=== PATIENT | female | born 1965 | race Two or more races ===

== ENCOUNTER 2024-07-04 08:48 | Inpatient (IN) | payer MEDICAID, OTHER ==
[~2024-07-04] VITALS: Ht 160 cm; Wt 67.9 kg
--- NOTE | 2024-07-04 10:28 | ED.PDOC ---
GI ASSESSMENT HPI Comments HPI: Poor Historian. 59-year-old female presents to emergency department for two day history of bilateral lower quadrant pain that changes in intensity associated with diarrhea brown in color but now yellow. Denies any vomiting but has some nausea with any time she eats. Patient had seven episodes of diarrhea yesterday and two today. No other alleviating or precipitating factors. Denies any other sick contacts with GI symptoms. Past Medical History: Diabetes, hyperlipidemia Past Surgical History: Gastric sleeve, total hysterectomy. REVIEW OF SYSTEMS: CONSTITUTIONAL: Denies acute: fever, diaphoresis, chills, generalized weakness. HEAD: Denies acute: headache, photophobia Eyes: Denies acute: Double vision, vision loss, eye pain, eye discharge. EARS: Denies acute: tinnitus, hearing loss, ear discharge, ear pain, THROAT: Denies acute: sore throat, swelling, difficulty swallowing , pain with swallowing, change in voice. NECK: Denies acute: neck pain, neck swelling, stiff neck. HEART: Denies acute : chest pain, palpitations, LUNGS: Denies acute: SOB, wheezing, cough, hemoptysis ABDOMEN: Denies acute: , Vomiting, melena , hematemesis, hematochezia SKIN: Denies acute: rash, redness, lesions, itchiness. EXTREMITIES: Denies acute: calf pain, numbness, tingling, weakness, denies pain in extremity. Denies acute: Low back pain. Neuro: Denies acute: focal neurological deficit, motor or sensory focal neurological deficit, tremors, seizure like activity, confusion, dizziness, change in mental status, loss of bowel or bladder function, cauda equina like symptoms. : Denies acute: dysuria, hematuria, flank pain, increase in urinary frequency. PSYCH: Denies acute: hallucination, suicidal ideation, homicidal ideation. FEMALE: Denies acute: abnormal vaginal bleeding, foul odor, unusual discharge. PHYSICAL EXAM: General: ----no----acute distress, awake and alert. Head: normocephalic, atraumatic. Neck: supple, trachea is midline, no swelling. Throat: Normal phonation. Eyes:, no erythema, no purulent discharge, no proptosis, no icterus. Heart: regular rate, regular rhythm, no significant murmur appreciated. Lungs: no apparent respiratory distress, Able to speak in full sentences. No wheezing, no rhonchi, no crackles. No stridors Clear to auscultation bilaterally. Abdomen: Minimal bilateral lower quadrant tender to palpation, non distended, soft, no guarding, no rebound, + bowel sounds. Neuro: Awake, Alert, oriented to name, self, situation, follows commands GCS=15. Speech is normal. Skin: no petechia, no purpura, no cyanosis, non-pale, not jaundice. Lower extremities: --no - Pitting edema no deformity, no focal swelling, no calf TTP. Makes eye contact. moves all four extremities. Face: no apparent facial droop. Ambulating in the ED independently. ED COURSE: Chief Complaint: Abdominal Pain Time Seen by MD: 10:18 Reviewed Notes: Nurses Notes, Medications, Allergies Allergies: Coded Allergies: NO KNOWN ALLERGIES (Unverified , 07/04/24) Home Meds Reported Medications Metformin Hydrochloride (Metformin Hcl Er) 500 Mg Tab, 1 TAB PO DAILY 07/04/24 Tdtga-2-Jhya Ethyl Esters (Dwxod-2-Jjcy Ethyl Esters) 1 Gm Cap, 2 CAP PO BID 07/04/24 Cholecalciferol (Vitamin D-3 Super Strengt) 2,000 Unit Tab, 1 TAB PO DAILY 07/04/24 Ferrous Sulfate (Ferosul) 325 Mg Tab, PO 07/04/24 Rosuvastatin Calcium (Rosuvastatin Calcium) 20 Mg Tab, 1 TAB PO 07/04/24 Information Source: Patient Mode of Arrival: Ambulatory Was a procedure done? Was a procedure done?: No GI differential Dx Differential Diagnosis: Other (DDX include Diverticulitis, colitis, gastroenteritis, acute abdomen, SBO, enteritis, constipation, volvulus, appendicitis, Gallbladder disease, choledocolithiasis, ascending cholangitis, pancreatitis, intraAbdominal mass/neoplasm, hepatitis, UTI, pylonephritis, kidney stone, aneurysm, dissection, Inflammatory bowel disease, gastroparesis, ischemic bowel, ovarian torsion, ) X-Ray, Labs, Meds, VS Vital Signs Date Time Temp Pulse Resp B/P (MAP) Pulse Ox O2 Delivery O2 Flow Rate FiO2 4/24/25 09:20 98.8 67 17 110/65 (80) 99 98.8 Lab Test 07/04/24 10:31 07/04/24 08:58 Range/Units White Blood Count 7.2 4.4-10.8 10^3/uL Red Blood Count 4.83 4.0-5.20 10^6/uL Hemoglobin 14.7 12.2-16.2 g/dL Hematocrit 42.6 36.0-46.0 % Mean Corpuscular Volume 88.3 80.0-100.0 fL Mean Corpuscular Hemoglobin 30.6 28.0-32.0 pg Mean Corpuscular Hemoglobin Concent 34.6 32.0-36.0 g/dL Red Cell Distribution Width 13.3 11.8-14.3 % Platelet Count 248 140-450 10^3/uL Mean Platelet Volume 6.6 L 6.9-10.8 fL Neutrophils (%) (Auto) 64.7 37.0-80.0 % Lymphocytes (%) (Auto) 27.1 10.0-50.0 % Monocytes (%) (Auto) 6.9 0.0-12.0 % Eosinophils (%) (Auto) 0.7 0.0-7.0 % Basophils (%) (Auto) 0.6 0.0-2.0 % Neutrophils # (Auto) 4.6 1.6-8.6 10 ^3/uL Lymphocytes # (Auto) 1.9 0.4-5.4 10 ^3/uL Monocytes # (Auto) 0.5 0-1.3 10 ^3/uL Eosinophils # (Auto) 0.1 0-0.8 10 ^3/uL Basophils # (Auto) 0 0-0.2 10 ^3/uL Nucleated Red Blood Cells 0.1 % Sodium Level 141 136-145 mmol/L Potassium Level 4.1 3.5-5.1 mmol/L Chloride Level 106 98-107 mmol/L Carbon Dioxide Level 26 20-31 mmol/L Anion Gap 9 5-15 Blood Urea Nitrogen 9 9-23 mg/dL Creatinine 0.58 0.550-1.02 mg/dL Glomerular Filtration Rate Calc 105 >90 mL/min BUN/Creatinine Ratio 15.5 10.0-20.0 Serum Glucose 106 74-106 mg/dL Hemoglobin A1c 5.2 <5.7 % A1C Lactic Acid Level 1.0 0.4-2.0 mmol/L Calcium Level 10.1 8.7-10.4 mg/dL Total Bilirubin 0.5 0.2-1.0 mg/dL Aspartate Amino Transferase (AST) 15 13-40 U/L Alanine Aminotransferase (ALT) 17 7-40 U/L Alkaline Phosphatase 85 46-116 U/L Lactate Dehydrogenase 174 120-246 U/L Troponin I High Sensitivity < 3 L </=34 ng/L Total Protein 7.5 5.7-8.2 g/dL Albumin 4.5 3.2-4.8 g/dL Carcinoembryonic Antigen 1.18 <=5.0 ng/mL CA 125 Antigen Pending Urine Color Yellow Yellow Urine Clarity Turbid H Clear Urine pH 5.5 5.0-9.0 Urine Specific [place] 1.022 1.001-1.035 Urine Protein Trace H Negative Urine Ketones Negative Negative Urine Blood Trace H Negative /uL Urine Nitrite Negative Negative Urine Bilirubin Negative Negative Urine Urobilinogen Normal Negative mg/dL Urine Leukocyte Esterase 1+ Negative /uL Urine RBC 4 0 - 4 /hpf Urine Microscopic WBC 7 H 0-5 /HPF Urine Squamous Epithelial Cells Few <5 /hpf Urine Calcium Oxalate Crystals Many None Seen Urine Bacteria Few H None Seen /hpf Urine Mucus Moderate None Seen Urine Glucose Normal Normal mg/dL Current Medications Medications (Trade) Dose Ordered Sig/Nicolle Route Start Time Stop Time Status Last Admin Ciprofloxacin 200 ml @ 200 mls/hr ONCE ONCE IV 07/04/24 12:45 07/04/24 13:44 DC 07/04/24 13:49 Metronidazole 100 ml @ 100 mls/hr ONCE ONCE IV 07/04/24 12:45 07/04/24 13:44 DC 07/04/24 13:01 PROCEDURE(s): ABPL - CT AB PEL WO CON-NO ORAL OR IV REASON: abd pain ORDER NUMBER(s): [id number], ACCESSION NUMBER(s): [id number] Exam: CT CT AB PEL WO CON-NO ORAL OR IV History: abd pain Comparison Study: None available at time of dictation. Technique: Multidetector spiral CT of the abdomen and pelvis was performed from lung bases to pubic symphysis. Imaging was performed without intravenous contrast. Coronal and sagittal multiplanar reformats were obtained from the axial data set by the technologist. Radiation Dose : 1. Abdomen/Pelvis: CTDIvol 11.5 mGy, DLP 589.2 mGy*cm. Findings: Evaluation of vasculature and solid organs is limited due to lack of intravenous contrast use. Lung Bases: Lung bases are clear. Visualized portions of the heart and pericardium are unremarkable. Liver: The liver is normal in size. No focal lesions. Gallbladder and Biliary Tree: The gallbladder is unremarkable. No intrahepatic or extrahepatic biliary ductal dilatation. Spleen: Unremarkable Pancreas: The pancreas is grossly unremarkable. Adrenal Glands: Unremarkable Kidneys: Kidneys are unremarkable without calculi or hydronephrosis. GI tract: Postsurgical changes in the stomach. No evidence of small bowel wall thickening or abnormal dilatation to suggest bowel obstruction. Scattered colonic diverticulosis without acute diverticulitis. Underdistention versus wall thickening of the ascending and descending colon. The appendix is normal. Peritoneum/mesentery/retroperitoneum. No evidence of free intraperitoneal air. No ascites. Lymph nodes: Increased number of lymph nodes for example in the right lower quadrant measuring up to 1.0 cm in short axis and in the central mesentery. Abdominal Wall: Unremarkable. Vasculature: The visualized abdominal aorta is normal in size and caliber. Evaluation of abdominal and pelvic vessels is limited due to lack of intravenous contrast. Urinary Bladder: Grossly unremarkable for degree of distention. Pelvic Organs: Unremarkable Musculoskeletal: No aggressive focal bony lesions, acute fractures or dislocation. IMPRESSION: 1. Underdistention versus wall thickening of the ascending and descending colon. Colitis is not excluded. 2. Increased number lymph nodes for example in the right lower quadrant and central abdomen. The etiology is unclear. Metastatic adenopathy of unknown source can not be excluded. Correlation with history is suggested. If clinically warranted, CT of the abdomen pelvis with intravenous and oral contrast may be obtained for further evaluation. Time of 1ST Reevaluation: 00:00 Reevaluation 1ST: Unchanged Patient Education/Counseling: Diagnosis, Treatment Family Education/Counseling: Other Comments Patient presented with the above HPI.---GI symptoms and abdominal pain---workup was initiated. patient was found with the above mentioned diagnosis. the following medications were ordered: please refer to order lists of meds and tests obtained by myself Dr. Beaulieu. Patient ED course and VS have been stabilized. Patient has been reassessed in the ED and remained in a stable condition. Pertinent incidental findings were discussed with the patient and/or family. Patient/family voices understanding and is agreeable with plan. Patient has been observed in the ED adequate length of time to insure improvement/stability. Escalation of care considered: Consideration of escalation to observation or admission Patient was treated for both colitis and UTI Patient was ADMITTED to the medicine team for further evaluation and treatment of their presentation. All the reports of any imaging studies that were ordered by myself were reviewed by myself. Departure 1 Departure Time of Disposition: 12:37 Impression: Primary Impression: Non-specific colitis Additional Impressions: UTI (urinary tract infection) Abnormal finding on CT scan Disposition: ADMITTED INPATIENT Admit to: [facility] Condition: Guarded Discharged With: Self Critical Care Note Critical Care Time?: No Heart Score Heart Score: Heart Score Response (Comments) Value History N/A 0 EKG N/A 0 Age N/A 0 Risk Factors N/A 0 Troponin N/A 0 Total 0 I personally scribed for HARPREET BEAULIEU DO ([email or web address]) on 07/04/24 at 15:16. Electronically submitted by Garrett Duran ([email or web address]). HARPREET BEAULIEU DO Jul 04, 2024 10:28
[2024-07-04 10:39] LABS: Urine Bacteria FEW /hpf (None Seen); Urine Blood TRACE /uL (Negative); Urine Clarity Turbid (Clear); Urine Color Yellow (Yellow); Urine Mucus MODERATE (None Seen); Urine Protein, UAD TRACE (Negative); Urine Specific Gravity 1.022 (1.001-1.035); Urine Squamous Epithelial Cell FEW /hpf (<5); Urine Urobilinogen Normal (Negative); Urine WBC 7 /HPF (0-5); Urine pH 5.5 (5.0-9.0)
[2024-07-04 10:57] LABS: Basophils # (auto) 0 10 ^3/uL (0-0.2); Basophils % (auto) 0.6 % (0.0-2.0); Eosinophils # (auto) 0.1 10 ^3/uL (0-0.8); Eosinophils % (auto) 0.7 % (0.0-7.0); Hematocrit 42.6 % (36.0-46.0); Hemoglobin 14.7 g/dL (12.2-16.2); Lymphocytes # (auto) 1.9 10 ^3/uL (0.4-5.4); Lymphocytes % (auto) 27.1 % (10.0-50.0); Mean Corpuscular Hemoglobin 30.6 pg (28.0-32.0); Mean Corpuscular Hgb Conc. 34.6 g/dL (32.0-36.0); Mean Corpuscular Volume 88.3 fL (80.0-100.0); Monocytes # (auto) 0.5 10 ^3/uL (0-1.3); Monocytes % (auto) 6.9 % (0.0-12.0); Neutrophils # (auto) 4.6 10 ^3/uL (1.6-8.6); Neutrophils % (auto) 64.7 % (37.0-80.0); Nucleated Red Blood Cells % 0.1 %; Platelet Count (auto) 248 10^3/uL (140-450); Red Blood Cells 4.83 10^6/uL (4.0-5.20); Red Cell Distribution Width 13.3 % (11.8-14.3); White Blood Cell 7.2 10^3/uL (4.4-10.8)
[2024-07-04 11:15] LABS: Alanine Aminotransferase 17 U/L (7-40); Albumin 4.5 g/dL (3.2-4.8); Alkaline Phosphatase 85 U/L (46-116); Anion Gap 9 (5-15); Aspartate Aminotransferase 15 U/L (13-40); BUN/Creatinine Ratio 15.5 (10.0-20.0); Bilirubin, Total 0.5 mg/dL (0.2-1.0); Calcium 10.1 mg/dL (8.7-10.4); Carbon Dioxide 26 mmol/L (20-31); Chloride 106 mmol/L (98-107); Glucose 106 mg/dL (74-106); Potassium 4.1 mmol/L (3.5-5.1); Sodium 141 mmol/L (136-145); Total Protein 7.5 g/dL (5.7-8.2)
[2024-07-04 11:16] LABS: Blood Urea Nitrogen 9 mg/dL (9-23)
--- NOTE | 2024-07-04 11:40 | DVH ---
Exam: CT CT AB PEL WO CON-NO ORAL OR IV History: abd pain Comparison Study: None available at time of dictation. Technique: Multidetector spiral CT of the abdomen and pelvis was performed from lung bases to pubic s ymphysis. Imaging was performed without intravenous contrast. Coronal and sagittal multiplanar reform ats were obtained from the axial data set by the technologist. Radiation Dose : 1. Abdomen/Pelvis: CTDIvol 11.5 mGy, DLP 589.2 mGy*cm. Findings: Evaluation of vasculature and solid organs is limited due to lack of intravenous contrast use. Lung Bases: Lung bases are clear. Visualized portions of the heart and pericardium are unremarkable. Liver: The liver is normal in size. No focal lesions. Gallbladder and Biliary Tree: The gallbladder is unremarkable. No intrahepatic or extrahepatic bilia ry ductal dilatation. Spleen: Unremarkable Pancreas: The pancreas is grossly unremarkable. Adrenal Glands: Unremarkable Kidneys: Kidneys are unremarkable without calculi or hydronephrosis. GI tract: Postsurgical changes in the stomach. No evidence of small bowel wall thickening or abnormal dilatation to suggest bowel obstruction. Scattered colonic diverticulosis without acute diverticulit is. Underdistention versus wall thickening of the ascending and descending colon. The appendix is nor mal. Peritoneum/mesentery/retroperitoneum. No evidence of free intraperitoneal air. No ascites. Lymph nodes: Increased number of lymph nodes for example in the right lower quadrant measuring up to 1.0 cm in short axis and in the central mesentery. Abdominal Wall: Unremarkable. Vasculature: The visualized abdominal aorta is normal in size and caliber. Evaluation of abdominal a nd pelvic vessels is limited due to lack of intravenous contrast. Urinary Bladder: Grossly unremarkable for degree of distention. Pelvic Organs: Unremarkable Musculoskeletal: No aggressive focal bony lesions, acute fractures or dislocation. IMPRESSION: 1. Underdistention versus wall thickening of the ascending and descending colon. Colitis is not exclu ded. 2. Increased number lymph nodes for example in the right lower quadrant and central abdomen. The simone ology is unclear. Metastatic adenopathy of unknown source can not be excluded. Correlation with his tory is suggested. If clinically warranted, CT of the abdomen pelvis with intravenous and oral contr ast may be obtained for further evaluation.
[2024-07-04] MEDS: metroNIDAZOLE 500MG/100ML 100 ML IV ONE (13:01)
[2024-07-04] MEDS: CIPROFLOXACIN 400MG/200ML 200 ML IV ONE (13:49)
[2024-07-04] MEDS ORDERED: MORPHINE SULFATE INJ 2 MG/ml SYRG IV PRN (14:00)
[2024-07-04] MEDS ORDERED: HYDROcodone-ACET 5/325MG TAB PO PRN (14:00)
[2024-07-04] MEDS ORDERED: CIPROFLOXACIN 400MG/200ML 200 ML IV SCH (14:00)
[2024-07-04] MEDS ORDERED: DEXTROSE (50%) 50ML SYRG IV PRN (14:00)
[2024-07-04] MEDS ORDERED: ACETAMINOPHEN 325 MG TAB PO PRN (14:00)
[2024-07-04] MEDS ORDERED: ONDANSETRON HCL 4 MG/2 ML VIAL IV PRN (14:00)
--- NOTE | 2024-07-04 14:22 | DVHHP2 ---
History of Present Illness Reason for Visit: Abdominal pain History of Present Illness Laura Adams is a 59-year-old female with past medical history of hyperlipidemia, diabetes, gastric sleeve surgery, and hysterectomy who presents to the ED with abdominal pain, nausea, and diarrhea x2 days. Patient states that the pain is 4/10 contraction-like and intermittent in nature. Patient denies any recent sick contacts, recent travels, recent ingestion of spoiled food, chest pain, shortness of breath, lightheadedness, weakness, dizziness, fever, chills, or recent trauma or injury. She reports that she had 7 diarrheal liquid bowel movements. Patient reports that she has no history of masses tumors or cancer. Patient does report that her mom and father does have a history of cancer. Cardiovascular: hyperipidemia Endocrine: Diabetes Past Surgical History: Hysterectomy, Other (Gastric sleeve surgery) Family History: Cancer, DM, Hypertension, Other (Mom with liver and pancreatic cancer, diabetes, and hypertension and dad with prostate cancer) Smoke: No ALCOHOL: none Drugs: None Lives: with Family Domestic Violence: Neg Review of Systems Gastrointestinal: Nausea, Abdominal Pain, Diarrhea Allergies: Coded Allergies: NO KNOWN ALLERGIES (Unverified , 07/04/24) Medications Current Medications Medications Dose Ordered Sig/Nicolle Route Start Time Stop Time Status Last Admin Dose Admin Metronidazole 100 ml @ 100 mls/hr Q8HR IV 07/04/24 14:00 UNV Ciprofloxacin 200 ml @ 200 mls/hr Q8HR IV 07/04/24 14:00 UNV Acetaminophen/ Hydrocodone Bitart 1 tab Q4HP PRN PO 07/04/24 14:00 UNV Ondansetron HCl 4 mg Q4HP PRN IV 07/04/24 14:00 UNV Acetaminophen 650 mg Q6HP PRN PO 07/04/24 14:00 UNV Morphine Sulfate 2 mg Q4HPRN PRN IV 07/04/24 14:00 UNV Diagnostic Test (Pha) 1 strip ACHS 07/04/24 17:00 UNV Insulin Human Regular ACHS SC 07/04/24 17:00 UNV Dextrose 50 ml UD PRN IV 07/04/24 14:00 UNV Exam Vital Signs Vital Signs Date Time Temp Pulse Resp B/P (MAP) Pulse Ox O2 Delivery O2 Flow Rate FiO2 07/04/24 09:20 98.8 67 17 110/65 (80) 99 98.8 General Appearance: Alert, Oriented X3, Cooperative, No acute distress HEENT: Atraumatic, PERRLA, EOMI, Mucous membr. moist/pink Respiratory: Clear to auscultation, Normal air movement Cardiovascular: Regular rate, Normal S1, Normal S2, No murmurs Abdominal: Soft Extremities: No clubbing, No cyanosis, No edema, Normal pulses, No tenderness/swelling Skin: No significant lesion Neuro: Normal gait, Normal speech, Strength at 5/5 X4 ext, Normal tone, Sensation intact Psych/Mental Status: Mental status NL, Mood NL Labs/Xrays Labs Test 07/04/24 10:31 07/04/24 08:58 Range/Units White Blood Count 7.2 4.4-10.8 10^3/uL Red Blood Count 4.83 4.0-5.20 10^6/uL Hemoglobin 14.7 12.2-16.2 g/dL Hematocrit 42.6 36.0-46.0 % Mean Corpuscular Volume 88.3 80.0-100.0 fL Mean Corpuscular Hemoglobin 30.6 28.0-32.0 pg Mean Corpuscular Hemoglobin Concent 34.6 32.0-36.0 g/dL Red Cell Distribution Width 13.3 11.8-14.3 % Platelet Count 248 140-450 10^3/uL Mean Platelet Volume 6.6 L 6.9-10.8 fL Neutrophils (%) (Auto) 64.7 37.0-80.0 % Lymphocytes (%) (Auto) 27.1 10.0-50.0 % Monocytes (%) (Auto) 6.9 0.0-12.0 % Eosinophils (%) (Auto) 0.7 0.0-7.0 % Basophils (%) (Auto) 0.6 0.0-2.0 % Neutrophils # (Auto) 4.6 1.6-8.6 10 ^3/uL Lymphocytes # (Auto) 1.9 0.4-5.4 10 ^3/uL Monocytes # (Auto) 0.5 0-1.3 10 ^3/uL Eosinophils # (Auto) 0.1 0-0.8 10 ^3/uL Basophils # (Auto) 0 0-0.2 10 ^3/uL Nucleated Red Blood Cells 0.1 % Sodium Level 141 136-145 mmol/L Potassium Level 4.1 3.5-5.1 mmol/L Chloride Level 106 98-107 mmol/L Carbon Dioxide Level 26 20-31 mmol/L Anion Gap 9 5-15 Blood Urea Nitrogen 9 9-23 mg/dL Creatinine 0.58 0.550-1.02 mg/dL Glomerular Filtration Rate Calc 105 >90 mL/min BUN/Creatinine Ratio 15.5 10.0-20.0 Serum Glucose 106 74-106 mg/dL Lactic Acid Level 1.0 0.4-2.0 mmol/L Calcium Level 10.1 8.7-10.4 mg/dL Total Bilirubin 0.5 0.2-1.0 mg/dL Aspartate Amino Transferase (AST) 15 13-40 U/L Alanine Aminotransferase (ALT) 17 7-40 U/L Alkaline Phosphatase 85 46-116 U/L Troponin I High Sensitivity < 3 L </=34 ng/L Total Protein 7.5 5.7-8.2 g/dL Albumin 4.5 3.2-4.8 g/dL Urine Color Yellow Yellow Urine Clarity Turbid H Clear Urine pH 5.5 5.0-9.0 Urine Specific [place] 1.022 1.001-1.035 Urine Protein Trace H Negative Urine Ketones Negative Negative Urine Blood Trace H Negative /uL Urine Nitrite Negative Negative Urine Bilirubin Negative Negative Urine Urobilinogen Normal Negative mg/dL Urine Leukocyte Esterase 1+ Negative /uL Urine RBC 4 0 - 4 /hpf Urine Microscopic WBC 7 H 0-5 /HPF Urine Squamous Epithelial Cells Few <5 /hpf Urine Calcium Oxalate Crystals Many None Seen Urine Bacteria Few H None Seen /hpf Urine Mucus Moderate None Seen Urine Glucose Normal Normal mg/dL CLINICAL INFORMATION: Rule out metastatic disease. Lymphadenopathy seen on noncontrast enhanced CT of the abdomen and pelvis. TECHNIQUE: Axial CT images of the abdomen and pelvis were obtained after the uneventful administration of 80 mL Omnipaque 300 IV contrast. Coronal and sagittal reformatted images were obtained, reviewed, and stored. All CT scans at this medical facility are performed using dose modulation techniques as appropriate to a performed exam including the following: Automated exposure control was utilized; adjustment of the MA and/or KV according to patient size; and use of iterative reconstruction technique. CTDIvol = 8.51 mGy DLP = 457.16 mGy-cm COMPARISON: Same-day noncontrast enhanced CT. FINDINGS: Lung bases: Atelectasis in the lung bases. Liver: Hepatic steatosis. Small subcentimeter low-attenuation lesion in the right hepatic lobe, possibly a cyst, but too small to characterize. Biliary: No calcified gallstones or biliary ductal dilatation. Spleen: Unremarkable. Pancreas: Unremarkable. No inflammatory changes, ductal dilatation, or mass identified. Adrenal glands: Unremarkable. No mass. Kidneys: No hydronephrosis or mass. Aorta/Vascular: No aneurysm or significant calcification. Retroperitoneum: No mass or lymphadenopathy. Bowel/mesentery: No small bowel obstruction. No free air or free fluid. Appendix is visualized and appears unremarkable. Areas of wall thickening in the colon, predominantly involving the ascending colon, descending colon and transverse colon are nonspecific. Mild colitis not excluded. Prominent lymph nodes in the right lower quadrant measuring up to 1.8 x 1.3 cm. Mildly prominent nodes in the central mesentery, predominantly subcentimeter in short axis dimension. Postsurgical changes of prior sleeve gastrectomy. Pelvic organs: Grossly unremarkable. Bladder: Unremarkable. No mass. Abdominal wall: No mass or hernia. Bones: No acute fracture or focal intraosseous lesion. IMPRESSION: 1. Prominent lymph nodes in the right lower quadrant and central mesentery, may be reactive. The largest lymph node in the right lower quadrant measures up to 1.8 x 1.3 cm with mildly thickened appearing cortex. Correlate with clinical findings. PET-CT could be considered to further characterize if clinically indicated. 2. Areas of wall thickening in the colon as described above are nonspecific. May be partly due to underdistention. Mild colitis not excluded. 3. Small subcentimeter low-attenuation lesion in the right hepatic lobe, likely a cyst, but too small to characterize. Exam: CT CT AB PEL WO CON-NO ORAL OR IV History: abd pain Comparison Study: None available at time of dictation. Technique: Multidetector spiral CT of the abdomen and pelvis was performed from lung bases to pubic symphysis. Imaging was performed without intravenous contrast. Coronal and sagittal multiplanar reformats were obtained from the axial data set by the technologist. Radiation Dose : 1. Abdomen/Pelvis: CTDIvol 11.5 mGy, DLP 589.2 mGy*cm. Findings: Evaluation of vasculature and solid organs is limited due to lack of intravenous contrast use. Lung Bases: Lung bases are clear. Visualized portions of the heart and pericardium are unremarkable. Liver: The liver is normal in size. No focal lesions. Gallbladder and Biliary Tree: The gallbladder is unremarkable. No intrahepatic or extrahepatic biliary ductal dilatation. Spleen: Unremarkable Pancreas: The pancreas is grossly unremarkable. Adrenal Glands: Unremarkable Kidneys: Kidneys are unremarkable without calculi or hydronephrosis. GI tract: Postsurgical changes in the stomach. No evidence of small bowel wall thickening or abnormal dilatation to suggest bowel obstruction. Scattered colonic diverticulosis without acute diverticulitis. Underdistention versus wall thickening of the ascending and descending colon. The appendix is normal. Peritoneum/mesentery/retroperitoneum. No evidence of free intraperitoneal air. No ascites. Lymph nodes: Increased number of lymph nodes for example in the right lower ivon drant measuring up to 1.0 cm in short axis and in the central mesentery. Abdominal Wall: Unremarkable. Vasculature: The visualized abdominal aorta is normal in size and caliber. Evaluation of abdominal and pelvic vessels is limited due to lack of intravenous contrast. Urinary Bladder: Grossly unremarkable for degree of distention. Pelvic Organs: Unremarkable Musculoskeletal: No aggressive focal bony lesions, acute fractures or dislocation. IMPRESSION: 1. Underdistention versus wall thickening of the ascending and descending colon. Colitis is not excluded. 2. Increased number lymph nodes for example in the right lower quadrant and central abdomen. The etiology is unclear. Metastatic adenopathy of unknown source can not be excluded. Correlation with history is suggested. If clinically warranted, CT of the abdomen pelvis with intravenous and oral contrast may be obtained for further evaluation. Assessment/Plan Assessment/Plan Assessment Intractable abdominal pain with nausea and diarrhea probable colitis UTI Possible metastatic adenopathy History of hyperlipidemia History of diabetes type 2 History of gastric sleeve surgery History of hysterectomy Plan Admit to med surge IV antibiotics-Flagyl plus ciprofloxacin C diff Stool bacterial culture Open parasite culture Stool WBC UA Troponin CT abdomen and pelvis without contrast noted CT abdomen and pelvis with contrast ordered Hemoglobin A1c ISS and Accu-Cheks Diet CEA CA 125 LDH Home medications reconciled DVT prophylaxis-SCDs PUD prophylaxis-Protonix Discussed plan of care with patient and nurse Plan discussed with: Patient My Orders Orders - MONO ROWE ICU RN Procedure Category Date Status Time Metronidazole PHA 07/04/24 Logged 500mg/100ml (Flagyl 14:00 Ciprofloxacin PHA 07/04/24 Logged 400mg/200ml (Cipro Iv) 14:00 Ct Ab Pel With Iv Con CT 07/04/24 Logged Only 14:00 Admit ADMIT 07/04/24 Transmitted 14:00 Allergies FALLON 07/04/24 In Process 14:00 Code Status CODE 07/04/24 Transmitted 14:00 Hydrocodone-Acet PHA 07/04/24 Logged 5/325mg Tab ([place] 14:00 Ondansetron Hcl PHA 07/04/24 Logged (Zofran) 14:00 Complete Blood Count LAB 07/05/24 Verified 04:00 Comprehensive LAB 07/05/24 Verified Metabolic Panel 04:00 Cardiac DIET 07/04/24 Transmitted Diet-2gna,Lofat,Lochol Dinner Acetaminophen Tablet PHA 07/04/24 Logged (Tylenol Tablet) 14:00 Morphine Sulfate PHA 07/04/24 Logged Injection 14:00 Sequential FALLON 07/04/24 In Process Compression Device Glucose Blood PHA 07/04/24 Logged (Accu-Chek Comfort 17:00 Insulin R (Human) PHA 07/04/24 Logged (Insulin R) 17:00 Dextrose 50% Syringe PHA 07/04/24 Logged 14:00 Hemoglobin A1c LAB 07/04/24 In Process 14:00 Date of Service: Jul 04, 2024 Billing Provider: MONO ROWE Common Visit Codes: [id number] INP/OBS CARE (HIGH) MONO ROWE Jul 04, 2024 14:22
[2024-07-04] MEDS ORDERED: metroNIDAZOLE 500MG/100ML 100 ML IV SCH (15:00)
[2024-07-04] MEDS ORDERED: OMEG-86 PO (15:10)
[2024-07-04] MEDS ORDERED: CHOL20003 PO (15:10)
[2024-07-04] MEDS ORDERED: FERR325T20 PO (15:10)
[2024-07-04] MEDS ORDERED: ROSU20TA56 PO (15:10)
--- NOTE | 2024-07-04 15:10 | DVH ---
CLINICAL INFORMATION: Rule out metastatic disease. Lymphadenopathy seen on noncontrast enhanced CT of the abdomen and pelvis. TECHNIQUE: Axial CT images of the abdomen and pelvis were obtained after the uneventful administrati on of 80 mL Omnipaque 300 IV contrast. Coronal and sagittal reformatted images were obtained, reviewe d, and stored. All CT scans at this medical facility are performed using dose modulation techniques a s appropriate to a performed exam including the following: Automated exposure control was utilized; a djustment of the MA and/or KV according to patient size; and use of iterative reconstruction techniqu e. CTDIvol = 8.51 mGy DLP = 457.16 mGy-cm COMPARISON: Same-day noncontrast enhanced CT. FINDINGS: Lung bases: Atelectasis in the lung bases. Liver: Hepatic steatosis. Small subcentimeter low-attenuation lesion in the right hepatic lobe, poss ibly a cyst, but too small to characterize. Biliary: No calcified gallstones or biliary ductal dilatation. Spleen: Unremarkable. Pancreas: Unremarkable. No inflammatory changes, ductal dilatation, or mass identified. Adrenal glands: Unremarkable. No mass. Kidneys: No hydronephrosis or mass. Aorta/Vascular: No aneurysm or significant calcification. Retroperitoneum: No mass or lymphadenopathy. Bowel/mesentery: No small bowel obstruction. No free air or free fluid. Appendix is visualized and ap pears unremarkable. Areas of wall thickening in the colon, predominantly involving the ascending col on, descending colon and transverse colon are nonspecific. Mild colitis not excluded. Prominent lymp h nodes in the right lower quadrant measuring up to 1.8 x 1.3 cm. Mildly prominent nodes in the centr al mesentery, predominantly subcentimeter in short axis dimension. Postsurgical changes of prior slee ve gastrectomy. Pelvic organs: Grossly unremarkable. Bladder: Unremarkable. No mass. Abdominal wall: No mass or hernia. Bones: No acute fracture or focal intraosseous lesion. IMPRESSION: 1. Prominent lymph nodes in the right lower quadrant and central mesentery, may be reactive. The lar gest lymph node in the right lower quadrant measures up to 1.8 x 1.3 cm with mildly thickened appeari ng cortex. Correlate with clinical findings. PET-CT could be considered to further characterize if cl inically indicated. 2. Areas of wall thickening in the colon as described above are nonspecific. May be partly due to und erdistention. Mild colitis not excluded. 3. Small subcentimeter low-attenuation lesion in the right hepatic lobe, likely a cyst, but too small to characterize.
[2024-07-04 15:37] VITALS: BP 124/59; PULSE 59; RESP 16; TEMP 98; O2SAT 100
[2024-07-04] MEDS ORDERED: METF-1145 PO (16:19)
[2024-07-04] MEDS: InsuLIN REG 1unit/0.01ml Soln (100units/ml) SC SCH (17:00)
[2024-07-04] MEDS: IOHEXOL 300 MG/ML 100ML BOTTLE IJ ONE (17:01)
[2024-07-04] MEDS: ACCU-CHEK COMFORT CURVE STRIP VI SCH (17:07)
[2024-07-04 21:00] VITALS: BP 108/58; PULSE 59; RESP 18; TEMP 98; O2SAT 97
[2024-07-04] MEDS: metroNIDAZOLE 500MG/100ML 100 ML IV SCH (22:02)
[2024-07-04] MEDS: CIPROFLOXACIN 400MG/200ML 200 ML IV SCH (22:10)
[2024-07-05] VITALS (7 sets, daily range): BP systolic 94–118; BP diastolic 53–61; PULSE 55–83; RESP 16–19; TEMP 97.1–98.5; O2SAT 94–100
[2024-07-05 05:44] LABS: Basophils # (auto) 0 10 ^3/uL (0-0.2); Basophils % (auto) 0.4 % (0.0-2.0); Eosinophils # (auto) 0.1 10 ^3/uL (0-0.8); Eosinophils % (auto) 1.8 % (0.0-7.0); Hematocrit 40.8 % (36.0-46.0); Hemoglobin 13.8 g/dL (12.2-16.2); Lymphocytes # (auto) 1.8 10 ^3/uL (0.4-5.4); Lymphocytes % (auto) 32.6 % (10.0-50.0); Mean Corpuscular Hemoglobin 29.8 pg (28.0-32.0); Mean Corpuscular Hgb Conc. 33.7 g/dL (32.0-36.0); Mean Corpuscular Volume 88.3 fL (80.0-100.0); Monocytes # (auto) 0.6 10 ^3/uL (0-1.3); Monocytes % (auto) 11.4 % (0.0-12.0); Neutrophils # (auto) 2.9 10 ^3/uL (1.6-8.6); Neutrophils % (auto) 53.8 % (37.0-80.0); Nucleated Red Blood Cells % 0.2 %; Platelet Count (auto) 242 10^3/uL (140-450); Red Blood Cells 4.62 10^6/uL (4.0-5.20); Red Cell Distribution Width 13.1 % (11.8-14.3); White Blood Cell 5.4 10^3/uL (4.4-10.8)
[2024-07-05 05:53] LABS: Alanine Aminotransferase 14 U/L (7-40); Albumin 4.1 g/dL (3.2-4.8); Alkaline Phosphatase 72 U/L (46-116); Anion Gap 9 (5-15); BUN/Creatinine Ratio 15.3 (10.0-20.0); Bilirubin, Total 0.5 mg/dL (0.2-1.0); Blood Urea Nitrogen 9 mg/dL (9-23); Calcium 9.8 mg/dL (8.7-10.4); Carbon Dioxide 26 mmol/L (20-31); Chloride 106 mmol/L (98-107); Glucose 96 mg/dL (74-106); Potassium 3.7 mmol/L (3.5-5.1); Sodium 141 mmol/L (136-145); Total Protein 6.6 g/dL (5.7-8.2)
[2024-07-05 06:13] LABS: Aspartate Aminotransferase 12 U/L (13-40)
--- NOTE | 2024-07-05 08:48 | ECG ---
[facility] Test Date: 2024-07-04 Test Time: 08:57:29 Pat Name: JASS KENNEDY Department: ER Room: 0244A Gender: F Environmental Inspector: DILCIA : [id number] Requested By: EMERGENCY EMERGENCY Order Number: [id number] Reading MD: Epi Harmon Measurements Intervals [place] Rate: 61 P: 43 FL: 164 QRS: 74 QRSD: 99 T: 46 QT: 417 QTc: 420 Interpretive Statements Sinus rhythm Electronically Signed On 07-07-2024 20:22:00 PDT by Epi Harmon Please click the below link to view image of tracing.
--- NOTE | 2024-07-05 11:46 | DVHPN2 ---
Subjective Patient is seen and examined at bedside. She said her abdominal pain is improved. Reviewed: Care Plan, H&P, Labs, Medications, Previous Orders Changes from previous H/P or p: No Changes Gastrointestinal: Nausea, Abdominal Pain, Diarrhea Objective Vitals Vital Signs Date Time Temp Pulse Resp B/P (MAP) Pulse Ox O2 Delivery O2 Flow Rate FiO2 07/05/24 08:38 97.9 74 16 106/54 (71) 100 97.9 07/04/24 20:00 Room Air* 0 21 Intake/Output Intake and Output 07/05/24 07:00 Intake Total 500 ml Balance 500 ml Intake Oral 500 ml # Voids 5 # Bowel Movements 3 General Appearance: Alert, Oriented X3, Cooperative, No acute distress HEENT: Atraumatic, PERRLA, EOMI, Mucous membr. moist/pink Lungs: Clear to auscultation, Normal air movement Cardiovascular: Regular rate, Normal S1, Normal S2, No murmurs, Gallops, Rubs Abdomen: Normal bowel sounds, Soft, No tenderness Neuro: Cranial nerves 3-12 NL Psych/Mental Status: Mental status NL Medications Current Medications Medications Dose Ordered Sig/Nicolle Route Start Time Stop Time Status Last Admin Dose Admin Acetaminophen/ Hydrocodone Bitart 1 tab Q4HP PRN PO 07/04/24 14:00 Ondansetron HCl 4 mg Q4HP PRN IV 07/04/24 14:00 Acetaminophen 650 mg Q6HP PRN PO 07/04/24 14:00 Morphine Sulfate 2 mg Q4HPRN PRN IV 07/04/24 14:00 Diagnostic Test (Pha) 1 strip ACHS 07/04/24 17:00 07/05/24 05:45 1 STRIP Insulin Human Regular ACHS SC 07/04/24 17:00 Dextrose 50 ml UD PRN IV 07/04/24 14:00 Ciprofloxacin 200 ml @ 200 mls/hr Q8HR IV 07/04/24 22:00 07/05/24 05:18 200 MLS/HR Metronidazole 100 ml @ 100 mls/hr Q8H IV 07/04/24 21:00 07/05/24 05:18 100 MLS/HR Laboratory Results Laboratory Tests 07/05/24 05:06 Chemistry Test 07/05/24 05:06 Albumin 4.1 g/dL (3.2-4.8) Calcium Level 9.8 mg/dL (8.7-10.4) Total Protein 6.6 g/dL (5.7-8.2) LFT Test 07/05/24 05:06 Alanine Aminotransferase (ALT) 14 U/L (7-40) Alkaline Phosphatase 72 U/L (46-116) Aspartate Amino Transferase (AST) 12 U/L (13-40) L Total Bilirubin 0.5 mg/dL (0.2-1.0) Urinalysis Test 07/04/24 08:58 Urine Color Yellow (Yellow) Urine Clarity Turbid (Clear) H Urine pH 5.5 (5.0-9.0) Urine Specific [place] 1.022 (1.001-1.035) Urine Protein Trace (Negative) H Urine Ketones Negative (Negative) Urine Blood Trace /uL (Negative) H Urine Nitrite Negative (Negative) Urine Bilirubin Negative (Negative) Urine Urobilinogen Normal mg/dL (Negative) Urine Leukocyte Esterase 1+ /uL (Negative) Urine RBC 4 /hpf (0 - 4) Urine Microscopic WBC 7 /HPF (0-5) H Urine Squamous Epithelial Cells Few /hpf (<5) Urine Calcium Oxalate Crystals Many (None Seen) Urine Bacteria Few /hpf (None Seen) H Urine Mucus Moderate (None Seen) Urine Glucose Normal mg/dL (Normal) Labs and/or images reviewed: Labs reviewed by me Assessment/Plan Assessment/Plan Intractable abdominal pain with nausea and diarrhea probable colitis UTI Possible metastatic adenopathy History of hyperlipidemia History of diabetes type 2 History of gastric sleeve surgery History of hysterectomy Continuing current management. Continuing with IV antibiotic. Waiting for C diff culture come back. Continuing sliding scale insulin Continuing with pain medication This medical document was created using an electronic medical record system with [employer] direct computerized dictation system. Although this document has been carefully reviewed, there may still be some phonetic and typographical errors. These areas are purely typographical due to imperfections of the software programs, and do not reflect any compromise in the patient's medical care. Plan discussed with: Patient Date of Service: Jul 05, 2024 Billing Provider: COLIN WYATT MD Common Visit Codes: [id number] INP/OBS CARE(HIGH) COLIN WYATT MD Jul 05, 2024 11:46
[2024-07-06 01:00] VITALS: BP 104/61; PULSE 69; RESP 19; TEMP 98.3; O2SAT 98
[2024-07-06 05:00] VITALS: BP_SYST 103; BP_SYST 123; BP_DIAS 61; BP_DIAS 72; PULSE 58; PULSE 75; RESP 17; RESP 18; TEMP 98.1; TEMP 98.6; O2SAT 96; O2SAT 98
[2024-07-06 08:00] VITALS: RESP 16
[2024-07-06 09:03] VITALS: BP 104/56; PULSE 60; RESP 20; TEMP 98.2; O2SAT 99
--- NOTE | 2024-07-06 11:59 | DVHDS2 ---
Discharge Summary Date of Admission Jul 04, 2024 at 14:00 Labs/Diagnostic Data: Laboratory Results Test 07/06/24 05:46 07/05/24 05:06 07/04/24 20:00 07/04/24 10:31 POC Glucose 86 mg/dl (70-106) White Blood Count 5.4 10^3/uL (4.4-10.8) Red Blood Count 4.62 10^6/uL (4.0-5.20) Hemoglobin 13.8 g/dL (12.2-16.2) Hematocrit 40.8 % (36.0-46.0) Mean Corpuscular Volume 88.3 fL (80.0-100.0) Mean Corpuscular Hemoglobin 29.8 pg (28.0-32.0) Mean Corpuscular Hemoglobin Concent 33.7 g/dL (32.0-36.0) Red Cell Distribution Width 13.1 % (11.8-14.3) Platelet Count 242 10^3/uL (140-450) Mean Platelet Volume 6.5 fL (6.9-10.8) Neutrophils (%) (Auto) 53.8 % (37.0-80.0) Lymphocytes (%) (Auto) 32.6 % (10.0-50.0) Monocytes (%) (Auto) 11.4 % (0.0-12.0) Eosinophils (%) (Auto) 1.8 % (0.0-7.0) Basophils (%) (Auto) 0.4 % (0.0-2.0) Neutrophils # (Auto) 2.9 10 ^3/uL (1.6-8.6) Lymphocytes # (Auto) 1.8 10 ^3/uL (0.4-5.4) Monocytes # (Auto) 0.6 10 ^3/uL (0-1.3) Eosinophils # (Auto) 0.1 10 ^3/uL (0-0.8) Basophils # (Auto) 0 10 ^3/uL (0-0.2) Nucleated Red Blood Cells 0.2 % Sodium Level 141 mmol/L (136-145) Potassium Level 3.7 mmol/L (3.5-5.1) Chloride Level 106 mmol/L (98-107) Carbon Dioxide Level 26 mmol/L (20-31) Anion Gap 9 (5-15) Blood Urea Nitrogen 9 mg/dL (9-23) Creatinine 0.59 mg/dL (0.550-1.02) Glomerular Filtration Rate Calc 105 mL/min (>90) BUN/Creatinine Ratio 15.3 (10.0-20.0) Serum Glucose 96 mg/dL (74-106) Calcium Level 9.8 mg/dL (8.7-10.4) Total Bilirubin 0.5 mg/dL (0.2-1.0) Aspartate Amino Transferase (AST) 12 U/L (13-40) Alanine Aminotransferase (ALT) 14 U/L (7-40) Alkaline Phosphatase 72 U/L (46-116) Total Protein 6.6 g/dL (5.7-8.2) Albumin 4.1 g/dL (3.2-4.8) Stool for White Cells Moderate Hemoglobin A1c 5.2 % A1C (<5.7) Lactic Acid Level 1.0 mmol/L (0.4-2.0) Lactate Dehydrogenase 174 U/L (120-246) Troponin I High Sensitivity < 3 ng/L (</=34) Carcinoembryonic Antigen 1.18 ng/mL (<=5.0) CA 125 Antigen 10.0 U/mL (0.0-38.1) Test 07/04/24 08:58 Urine Color Yellow (Yellow) Urine Clarity Turbid (Clear) Urine pH 5.5 (5.0-9.0) Urine Specific [place] 1.022 (1.001-1.035) Urine Protein Trace (Negative) Urine Ketones Negative (Negative) Urine Blood Trace /uL (Negative) Urine Nitrite Negative (Negative) Urine Bilirubin Negative (Negative) Urine Urobilinogen Normal mg/dL (Negative) Urine Leukocyte Esterase 1+ /uL (Negative) Urine RBC 4 /hpf (0 - 4) Urine Microscopic WBC 7 /HPF (0-5) Urine Squamous Epithelial Cells Few /hpf (<5) Urine Calcium Oxalate Crystals Many (None Seen) Urine Bacteria Few /hpf (None Seen) Urine Mucus Moderate (None Seen) Urine Glucose Normal mg/dL (Normal) Other Laboratory Tests 07/05/24 05:06 Discharge Statement: "Patient was advised to return to the ER or call 911 if any headaches, dizziness, shortness of breath, chest pain, abdominal pain, bleeding, fevers, or worsening of medical condition. Patient was counseled about treatment plan, medications, possible side effects, patientverbalized understanding. All questions were answered to the best of my ability. This discharge took greater then 30 minutes in planning, reviewing documentation, counseling the patient, and discussing with other team members." ASSESSMENT ASSESSMENT Assessment COLIN WYATT MD Jul 06, 2024 11:59
[2024-07-06] MEDS ORDERED: METR-344 PO (12:00)
[2024-07-06] MEDS ORDERED: LEVO500T91 PO (12:00)
--- NOTE | 2024-07-06 12:36 | DVHPN2 ---
Subjective Patient is seen and examined at bedside. She said her abdominal pain is improved. Reviewed: Care Plan, H&P, Labs, Medications, Previous Orders Gastrointestinal: Nausea, Abdominal Pain, Diarrhea Objective Vitals Vital Signs Date Time Temp Pulse Resp B/P (MAP) Pulse Ox O2 Delivery O2 Flow Rate FiO2 07/06/24 09:03 98.2 60 20 104/56 (72) 99 98.2 07/06/24 08:00 Room Air* 0 21 Intake/Output Intake and Output 07/06/24 07:00 Intake Total 1400 ml Output Total 1000 ml Balance 400 ml Intake Oral 1100 ml IV Total 300 ml Output Urine Total 1000 ml # Voids 3 General Appearance: Alert, Oriented X3, Cooperative, No acute distress HEENT: Atraumatic, PERRLA, EOMI, Mucous membr. moist/pink Lungs: Clear to auscultation, Normal air movement Cardiovascular: Regular rate, Normal S1, Normal S2, No murmurs, Gallops, Rubs Abdomen: Normal bowel sounds, Soft, No tenderness Neuro: Cranial nerves 3-12 NL Psych/Mental Status: Mental status NL Medications Current Medications Medications Dose Ordered Sig/Nicolle Route Start Time Stop Time Status Last Admin Dose Admin Acetaminophen/ Hydrocodone Bitart 1 tab Q4HP PRN PO 07/04/24 14:00 Ondansetron HCl 4 mg Q4HP PRN IV 07/04/24 14:00 Acetaminophen 650 mg Q6HP PRN PO 07/04/24 14:00 Morphine Sulfate 2 mg Q4HPRN PRN IV 07/04/24 14:00 Diagnostic Test (Pha) 1 strip ACHS 07/04/24 17:00 07/06/24 12:13 1 STRIP Insulin Human Regular ACHS SC 07/04/24 17:00 Dextrose 50 ml UD PRN IV 07/04/24 14:00 Ciprofloxacin 200 ml @ 200 mls/hr Q8HR IV 07/04/24 22:00 07/06/24 06:35 200 MLS/HR Metronidazole 100 ml @ 100 mls/hr Q8H IV 07/04/24 21:00 07/06/24 05:39 100 MLS/HR Laboratory Results Laboratory Tests 07/05/24 05:06 Urinalysis Test 07/04/24 08:58 Urine Color Yellow (Yellow) Urine Clarity Turbid (Clear) H Urine pH 5.5 (5.0-9.0) Urine Specific [place] 1.022 (1.001-1.035) Urine Protein Trace (Negative) H Urine Ketones Negative (Negative) Urine Blood Trace /uL (Negative) H Urine Nitrite Negative (Negative) Urine Bilirubin Negative (Negative) Urine Urobilinogen Normal mg/dL (Negative) Urine Leukocyte Esterase 1+ /uL (Negative) Urine RBC 4 /hpf (0 - 4) Urine Microscopic WBC 7 /HPF (0-5) H Urine Squamous Epithelial Cells Few /hpf (<5) Urine Calcium Oxalate Crystals Many (None Seen) Urine Bacteria Few /hpf (None Seen) H Urine Mucus Moderate (None Seen) Urine Glucose Normal mg/dL (Normal) Microbiology Microbiology Date/Time Source Procedure Growth Status 07/04/24 20:00 Stool Stool Culture - Preliminary Resulted 07/04/24 20:00 Stool Shiga Toxin I & II - Final Resulted 07/04/24 20:00 Stool Clostridium difficile Toxin Assay - Final Resulted Assessment/Plan Assessment/Plan Intractable abdominal pain with nausea and diarrhea probable colitis UTI Possible metastatic adenopathy History of hyperlipidemia History of diabetes type 2 History of gastric sleeve surgery History of hysterectomy Continuing current management. Continuing with IV antibiotic. Waiting for C diff culture come back. Continuing sliding scale insulin Continuing with pain medication This medical document was created using an electronic medical record system with [employer] computerized dictation system. Although this document has been carefully reviewed, there may still be some phonetic and typographical errors. These areas are purely typographical due to imperfections of the software programs, and do not reflect any compromise in the patient's medical care. My Orders Orders - COLIN WYATT MD Procedure Category Date Status Time Discharge DISCHARGE 07/06/24 Transmitted 12:00 COLIN WYATT MD Jul 06, 2024 12:36
[2024-07-06 12:54] VITALS: BP 103/58; PULSE 72; RESP 18; TEMP 98.4; O2SAT 98
== END 2024-07-06 13:13 | disposition home or self-care (01) | DRG 249 ==
LOC: ER 08:48 → OVERFLOW 14:00 → WEST WING 15:42 → EAST 20:33
PROVIDERS: ADMIT Internal Medicine; ATTEND Internal Medicine
DX: A09 Infectious gastroenteritis and colitis, unspecified (principal); C77.9 Secondary and unspecified malignant neoplasm of lymph node, unspecified; E11.9 Type 2 diabetes mellitus without complications; N39.0 Urinary tract infection, site not specified; E78.5 Hyperlipidemia, unspecified; Z98.84 Bariatric surgery status; Z90.710 Acquired absence of both cervix and uterus; Z79.84 Long term (current) use of oral hypoglycemic drugs; Z79.899 Other long term (current) drug therapy; Z80.0 Family history of malignant neoplasm of digestive organs; Z83.3 Family history of diabetes mellitus; Z82.49 Family history of ischemic heart disease and other diseases of the circulatory system
CPT/HCPCS: 36415; 74176; 74177; 80053; 81001; 82378; 82962; 83036; 83605; 83615; 84484; 85025; 85048; 86304; 87045; 87177; 87427; 87493; 93005; G0378; J3490